=== PATIENT | female | born 1995 | race Caucasian/White ===

== ENCOUNTER 2017-10-29 16:01 | Emergency (ER) | payer OTHER ==
[2017-10-29] MEDS ORDERED: Famotidine IV* 10 MG/ML 2 ML (20 mg) IV SLOW PU ONE (17:31)
[2017-10-29] MEDS ORDERED: methylPREDNISolone 125 MG* 2 ML VIAL IV ONE (17:31)
[2017-10-29] MEDS ORDERED: NS 0.9% 1000 ML* 1,000 ML IV ONE (17:33)
[2017-10-29 19:53] VITALS: BP 112/58
--- NOTE | 2017-10-30 22:41 | ED ---
David Pruett Stephanie, scribed for Santiago Izquierdo MD on 10/29/17 at 1801 . Allergic Reaction/Systemic - HPI Summary HPI Summary: The pt is a 22 y/o F presenting to the ED with c/o possible allergic reaction that began at 14:30 s/p eating at the dining [place]. Symptoms include difficulty breathing and itchy throat with cough. The pt self-administered epi pen and took antihistamine at 15:30. She states a shellfish allergy. The pt reports recent accounts of allergic reactions but is unaware of what caused the reaction today due to lack of shellfish consumed today. The pt denies nausea. - History of Current Complaint Chief Complaint: EDAllergicReaction Time Seen by Provider: 10/29/17 17:21 Hx Obtained From: Patient Onset/Duration: Started hours ago - 3, Resolved Timing: Constant Severity Currently: None Pain Intensity: 0 Pain Scale Used: 0-10 Numeric Character: Swelling Aggravating Factor(s): Nothing Alleviating Factor(s): Nothing Associated Signs And Symptoms: Positive: Difficulty Breathing, Other: - throat itchiness - Allergies/Home Medications Allergies/Adverse Reactions: Allergies Allergy/AdvReac Type Severity Reaction Status Date / Time MS Sulfa Antibiotics Allergy Rash Verified 07/20/16 09:59 [Sulfa Antibiotics] PMH/Surg Hx/FS Hx/Imm Hx Endocrine/Hematology History: Denies: Hx Diabetes Cardiovascular History: Denies: Hx Hypertension, Hx Pacemaker/ICD History: Denies: Hx Renal Disease Sensory History: Denies: Hx Legally Blind, Hx Hearing Aid EENT History: Denies: Hx Deafness Psychiatric History: Denies: Hx Panic Disorder - Surgical History Surgery Procedure, Year, and Place: TUBES CHILD Infectious Disease History: No Infectious Disease History: Denies: Traveled Outside the [place] in Last 30 Days - Family History Known Family History: Positive: Unknown - Reviewed and non-contributory - Social History Occupation: Student Lives: Dormitory/Roommates Alcohol Use: Occasionally Substance Use Type: Reports: None Smoking Status (MU): Never Smoked Tobacco Review of Systems Negative: Fever, Chills Negative: Erythema Positive: Other - itchy throat. Negative: Sore Throat Negative: Chest Pain Positive: Other - difficulty breathing. Negative: Shortness Of Breath, Cough Negative: Abdominal Pain, Vomiting, Nausea Negative: dysuria, hematuria Negative: Myalgia, Edema Negative: Rash Neurological: Other - Negative: dizziness All Other Systems Reviewed And Are Negative: Yes Physical Exam - Summary Physical Exam Summary: Constitutional: Well-developed, Well-nourished, Alert. (-) Distressed Skin: Warm, Dry HENT: Normocephalic; Atraumatic Eyes: Conjunctiva normal Neck: Musculoskeletal ROM normal neck. (-) JVD, (-) Stridor, (-) Tracheal deviation Cardio: Rhythm regular, rate normal, Heart sounds normal; Intact distal pulses; The pedal pulses are 2+ and symmetric. Radial pulses are 2+ and symmetric. (-) Murmur Pulmonary/Chest wall: Effort normal. (-) Respiratory distress, (-) Wheezes, (-) Rales Abd: Soft, (-) Tenderness, (-) Distension, (-) Guarding, (-) Rebound Musculoskeletal: (-) Edema Lymph: (-) Cervical adenopathy Neuro: Alert, Oriented x3 Psych: Mood and affect Normal Triage Information Reviewed: Yes Vital Signs On Initial Exam: Initial Vitals Temp Pulse Resp BP Pulse Ox 98.4 F 102 18 144/75 100 10/29/17 16:13 10/29/17 16:13 10/29/17 16:13 10/29/17 16:13 10/29/17 16:13 Vital Signs Reviewed: Yes Diagnostics - Vital Signs Vital Signs Temp Pulse Resp BP Pulse Ox 10/29/17 16:14 97 99 10/29/17 16:13 98.4 F 102 18 144/75 100 - Laboratory Lab Statement: Any lab studies that have been ordered have been reviewed, and results considered in the medical decision making process. Allergic Reaction Course/Dx - Course Course Of Treatment: The pt will remain in the ED for 4 hours of observation s/ p self-epinephrine administration. - Diagnoses Provider Diagnoses: Anaphylaxis Discharge - Discharge Plan Condition: Stable Disposition: HOME Prescriptions: predniSONE TAB* [Deltasone TAB*] 50 mg PO DAILY #5 tab Patient Education Materials: Food Allergy (ED), Anaphylaxis (ED) Referrals: Yazan Martinez DO [Primary Care Provider] - 2 Days Additional Instructions: RETURN TO THE EMERGENCY DEPARTMENT FOR CHANGING OR WORSENING SYMPTOMS The documentation as recorded by the David rincon Stephanie accurately reflects the service I personally performed and the decisions made by Felecia bob Jerry, MD.
== END 2017-10-29 19:52 | disposition home or self-care (01) ==
LOC: ED 16:01
DX: T78.2XXA Anaphylactic shock, unspecified, initial encounter (principal); Z88.2 Allergy status to sulfonamides
CPT/HCPCS: 96361; 96374; 96375; 99283; J2930

== ENCOUNTER 2017-11-10 22:02 | Emergency (ER) | payer OTHER ==
[2017-11-10 23:25] LABS: ABS Basophils 0.1 10^3/ul (0-0.2); ABS Eosinophils 0.2 10^3/ul (0-0.6); ABS Lymphocytes 3.5 10^3/ul (1.0-4.8); ABS Monocytes 0.8 10^3/ul (0-0.8); ABS Neutrophils 5.3 10^3/ul (1.5-7.7); ABS Nucleated RBC 0 10^3/ul; Eosinophil % 1.9 % (0-6); Hematocrit 41 % (35-47); Hemoglobin 14.1 g/dl (12.0-16.0); Lymphocyte % 35.5 % (25-47); Mean Corpuscular HGB Conc 34 g/dl (31-36); Mean Corpuscular Hemoglobin 29 pg (27-31); Mean Corpuscular Volume 85 fL (80-97); Mean Platelet Volume 8 um3 (7.4-10.4); Nucleated Red Blood Cells % 0.1; Platelet Count 171 10^3/ul (150-450); Red Blood Count 4.83 10^6/ul (4.0-5.4); Red Cell Distribution Width 13 % (10.5-15); White Blood Count 9.7 10^3/ul (3.5-10.8)
[2017-11-10 23:38] LABS: EGFR Non-African American 94.6 (>60)
--- NOTE | 2017-11-11 00:03 | ED ---
HPI Chest Pain - HPI Summary HPI Summary: Patient is an otherwise healthy 22-year-old female presenting to the ED with chief complaint of substernal chest pain which radiates up into the left lateral neck. She states the neck pain began first 2 days ago and did not radiate. Then today, she developed the substernal chest pain. She denies diaphoresis, palpitations, shortness of breath, nausea, vomiting, headache, blurry or double vision. Denies any personal or family cardiac history. She states she was on prednisone for an allergic reaction for several days and was abruptly stopped 2 days ago. This is when her symptoms began. She denies any other change to her medical history. She denies recent illness or sick contacts. - History of Current Complaint Chief Complaint: EDChestPainROMI Time Seen by Provider: 11/10/17 22:18 Hx Obtained From: Patient Onset/Duration: Started Hours Ago Timing: Constant Initial Severity: Mild Current Severity: Mild Pain Intensity: 8 Pain Scale Used: 0-10 Numeric Chest Pain Location: Mid Sternal Chest Pain Radiates: No Character: Dull/Aching Aggravating Factor(s): Nothing Alleviating Factor(s): Nothing Associated Signs and Symptoms: Positive: Negative - Risk Factors Pulmonary Embolism Risk Factors: Negative TAD Risk Factors: Negative - Allergy/Home Medications Allergies/Adverse Reactions: Allergies Allergy/AdvReac Type Severity Reaction Status Date / Time Sulfa (Sulfonamide Allergy Rash Verified 10/29/17 19:35 Antibiotics) PMH/Surg Hx/FS Hx/Imm Hx Previously Healthy: Yes Endocrine/Hematology History: Denies: Hx Diabetes Cardiovascular History: Denies: Hx Hypertension, Hx Pacemaker/ICD History: Denies: Hx Renal Disease Sensory History: Denies: Hx Legally Blind, Hx Deafness, Hx Hearing Aid Opthamlomology History: Denies: Hx Legally Blind Psychiatric History: Denies: Hx Panic Disorder - Surgical History Surgery Procedure, Year, and Place: TUBES CHILD - Immunization History Hx Pertussis Vaccination: No Immunizations Up to Date: Unable to Obtain/Confirm Infectious Disease History: Yes Infectious Disease History: Denies: Traveled Outside the [place] in Last 30 Days - Family History Known Family History: Positive: Unknown - Reviewed and non-contributory - Social History Occupation: Unemployed, Student Lives: With Family Alcohol Use: Occasionally Hx Substance Use: No Substance Use Type: Reports: None Hx Tobacco Use: No Smoking Status (MU): Never Smoked Tobacco Review of Systems Constitutional: Negative Negative: Fever, Chills, Fatigue, Skin Diaphoresis Eyes: Negative Positive: Chest Pain Respiratory: Negative Gastrointestinal: Negative Positive: no symptoms reported, see HPI Musculoskeletal: Negative Neurological: Negative All Other Systems Reviewed And Are Negative: Yes Physical Exam Triage Information Reviewed: Yes Vital Signs On Initial Exam: Initial Vitals Temp Pulse Resp BP Pulse Ox 98.8 F 87 16 145/96 99 11/10/17 22:02 11/10/17 22:02 11/10/17 22:02 11/10/17 22:02 11/10/17 22:02 Vital Signs Reviewed: Yes Appearance: Positive: Well-Appearing, Well-Nourished Skin: Positive: Warm, Skin Color Reflects Adequate Perfusion Head/Face: Positive: Normal Head/Face Inspection Eyes: Positive: EOMI, DAISY, Conjunctiva Clear Neck: Positive: Supple Diagnostics - Vital Signs Vital Signs Temp Pulse Resp BP Pulse Ox 11/10/17 22:02 98.8 F 87 16 145/96 99 - Laboratory Lab Results: Lab Results 11/10/17 11/10/17 11/10/17 Range/Units 23:12 23:12 23:12 WBC 9.7 (3.5-10.8) 10^3/ul RBC 4.83 (4.0-5.4) 10^6/ul Hgb 14.1 (12.0-16.0) g/dl Hct 41 (35-47) % MCV 85 (80-97) fL MCH 29 (27-31) pg MCHC 34 (31-36) g/dl RDW 13 (10.5-15) % Plt Count 171 (150-450) 10^3/ul MPV 8 (7.4-10.4) um3 Neut % (Auto) 54.0 (38-83) % Lymph % (Auto) 35.5 (25-47) % [place] % (Auto) 8.1 H (0-7) % Eos % (Auto) 1.9 (0-6) % Baso % (Auto) 0.5 (0-2) % Absolute Neuts (auto) 5.3 (1.5-7.7) 10^3/ul Absolute Lymphs (auto) 3.5 (1.0-4.8) 10^3/ul Absolute Monos (auto) 0.8 (0-0.8) 10^3/ul Absolute Eos (auto) 0.2 (0-0.6) 10^3/ul Absolute Basos (auto) 0.1 (0-0.2) 10^3/ul Absolute Nucleated RBC 0 10^3/ul Nucleated RBC % 0.1 APTT 28.1 (26.0-36.3) seconds D-Dimer, Quantitative < 200 (Less Than 230) ng/mL Sodium (133-145) mmol/L Potassium (3.5-5.0) mmol/L Chloride (101-111) mmol/L Carbon Dioxide (22-32) mmol/L Anion Gap (2-11) mmol/L BUN (6-24) mg/dL Creatinine (0.51-0.95) mg/dL Est GFR ( Amer) (>60) Est GFR (Non-Af Amer) (>60) BUN/Creatinine Ratio (8-20) Glucose (70-100) mg/dL Lactic Acid (0.5-2.0) mmol/L Calcium (8.6-10.3) mg/dL Magnesium (1.9-2.7) mg/dL Total Bilirubin (0.2-1.0) mg/dL AST (13-39) U/L ALT (7-52) U/L Alkaline Phosphatase (34-104) U/L Total Creatine Kinase (10-223) U/L CK-MB (CK-2) (0.6-6.3) ng/mL Troponin I (<0.04) ng/mL B-Natriuretic Peptide 27 ( - 100) pg/mL Total Protein (6.4-8.9) g/dL Albumin (3.2-5.2) g/dL Globulin (2-4) g/dL Albumin/Globulin Ratio (1-3) Beta HCG, Quant mIU/mL 11/10/17 11/10/17 Range/Units 23:12 23:12 WBC (3.5-10.8) 10^3/ul RBC (4.0-5.4) 10^6/ul Hgb (12.0-16.0) g/dl Hct (35-47) % MCV (80-97) fL MCH (27-31) pg MCHC (31-36) g/dl RDW (10.5-15) % Plt Count (150-450) 10^3/ul MPV (7.4-10.4) um3 Neut % (Auto) (38-83) % Lymph % (Auto) (25-47) % [place] % (Auto) (0-7) % Eos % (Auto) (0-6) % Baso % (Auto) (0-2) % Absolute Neuts (auto) (1.5-7.7) 10^3/ul Absolute Lymphs (auto) (1.0-4.8) 10^3/ul Absolute Monos (auto) (0-0.8) 10^3/ul Absolute Eos (auto) (0-0.6) 10^3/ul Absolute Basos (auto) (0-0.2) 10^3/ul Absolute Nucleated RBC 10^3/ul Nucleated RBC % APTT (26.0-36.3) seconds D-Dimer, Quantitative (Less Than 230) ng/mL Sodium 138 (133-145) mmol/L Potassium 3.9 (3.5-5.0) mmol/L Chloride 105 (101-111) mmol/L Carbon Dioxide 27 (22-32) mmol/L Anion Gap 6 (2-11) mmol/L BUN 12 (6-24) mg/dL Creatinine 0.77 (0.51-0.95) mg/dL Est GFR ( Amer) 121.7 (>60) Est GFR (Non-Af Amer) 94.6 (>60) BUN/Creatinine Ratio 15.6 (8-20) Glucose 98 (70-100) mg/dL Lactic Acid 1.4 (0.5-2.0) mmol/L Calcium 9.5 (8.6-10.3) mg/dL Magnesium 2.2 (1.9-2.7) mg/dL Total Bilirubin 0.40 (0.2-1.0) mg/dL AST 26 (13-39) U/L ALT 37 (7-52) U/L Alkaline Phosphatase 47 (34-104) U/L Total Creatine Kinase 62 (10-223) U/L CK-MB (CK-2) 0.8 (0.6-6.3) ng/mL Troponin I 0.00 (<0.04) ng/mL B-Natriuretic Peptide ( - 100) pg/mL Total Protein 6.5 (6.4-8.9) g/dL Albumin 4.0 (3.2-5.2) g/dL Globulin 2.5 (2-4) g/dL Albumin/Globulin Ratio 1.6 (1-3) Beta HCG, Quant 0.76 mIU/mL Result Diagrams: 11/10/17 23:12 11/10/17 23:12 Lab Statement: Any lab studies that have been ordered have been reviewed, and results considered in the medical decision making process. Chest Pain Course/Dx - Course Course Of Treatment: During the course of treatment, the patient was evaluated for midsternal chest pain and left lateral neck pain which is a 2 out of 10 and has been present since this afternoon. However, the neck pain has been present since 2 days ago. Labs obtained and unremarkable. EKG shows normal sinus rhythm. Troponin is 0.00. D-dimer is less than 200. I have given her all this information, and have discussed the possibility that this could be a rebound reaction from the abrupt stop the prednisone. I have also discussed with her chest wall pain and costochondritis. I do not believe she is in any danger at this time for a cardiac event. However, I have advised she return to the ED immediately if symptoms worsen or persist. She is okay with this plan and voices no concerns at this time. - Diagnoses Provider Diagnoses: Midsternal chest pain Discharge - Discharge Plan Condition: Stable Disposition: HOME Patient Education Materials: Costochondritis (ED), Chest Wall Pain (ED) Referrals: Yazan Martinez DO [Primary Care Provider] - Additional Instructions: I have given you information for costochondritis as well as chest wall pain. As discussed, we are unsure of the cause of your midsternal chest pain However, it could be a side effect due to the prednisone If any symptoms persist or worsen, return to the ED immediately
[2017-11-11 00:08] VITALS: BP 136/80
--- NOTE | 2017-11-11 07:30 | RAD ---
HISTORY: Chest pain COMPARISONS: None VIEWS: 1: frontal portable view of the chest at 10:40 PM FINDINGS: LINES AND TUBES: None. CARDIOMEDIASTINAL SILHOUETTE: The cardiomediastinal silhouette is normal for portable technique. PLEURA: The costophrenic angles are sharp. No pleural abnormalities are noted. LUNG PARENCHYMA: The lungs are clear. ABDOMEN: The upper abdomen is clear. There is no subphrenic gas. BONES AND SOFT TISSUES: No bone or soft tissue abnormalities are noted. IMPRESSION: NO ACTIVE CARDIOPULMONARY DISEASE.
== END 2017-11-11 00:07 | disposition home or self-care (01) ==
LOC: ED 22:02
DX: R07.9 Chest pain, unspecified (principal)
CPT/HCPCS: 36415; 71045; 80053; 82550; 82553; 83605; 83735; 83880; 84484; 84702; 85025; 85379; 85730; 93005; 99283

== ENCOUNTER 2017-11-27 10:25 | Emergency (ER) | payer OTHER ==
[2017-11-27 11:04] LABS: Hematocrit 43 % (35-47); Hemoglobin 14.7 g/dl (12.0-16.0); Mean Corpuscular HGB Conc 34 g/dl (31-36); Mean Corpuscular Hemoglobin 28 pg (27-31); Mean Corpuscular Volume 83 fL (80-97); Mean Platelet Volume 8 um3 (7.4-10.4); Platelet Count 197 10^3/ul (150-450); Red Blood Count 5.17 10^6/ul (4.0-5.4); Red Cell Distribution Width 13 % (10.5-15)
[2017-11-27 11:07] LABS: ABS Basophils 0 10^3/ul (0-0.2); ABS Eosinophils 0.1 10^3/ul (0-0.6); ABS Lymphocytes 1.9 10^3/ul (1.0-4.8); ABS Monocytes 0.5 10^3/ul (0-0.8); ABS Neutrophils 3.4 10^3/ul (1.5-7.7); ABS Nucleated RBC 0 10^3/ul; Eosinophil % 2.3 % (0-6); Lymphocyte % 31.8 % (25-47); Nucleated Red Blood Cells % 0.1
[2017-11-27 11:30] LABS: EGFR Non-African American 96.1 (>60)
--- NOTE | 2017-11-27 11:52 | RAD ---
HISTORY: Right upper quadrant pain. COMPARISONS: None TECHNIQUE: Multiple transverse and longitudinal ultrasound images were obtained of the right upper quadrant. FINDINGS: LIVER: The liver is normal in dimensions and echogenicity. Normal hepatic and portal venous blood flow is duplicated with color flow imaging. There is no gross intrahepatic biliary duct dilatation. GALLBLADDER AND EXTRAHEPATIC BILIARY DUCT: The gallbladder is normal in appearance without intraluminal stones or other soft tissue masses. There is no pericholecystic fluid or gallbladder wall thickening. The common bile duct measures a maximum diameter of 3 mm. PANCREAS: The portions of the pancreas not obscured by bowel gas are normal in appearance. RIGHT KIDNEY: The right kidney is normal in size, morphology and echogenicity. AORTA AND IVC: The visualized portions are normal in appearance and not pathologically dilated. IMPRESSION: Normal ultrasound of the right upper quadrant.
[2017-11-27 12:01] LABS: Urine Appearance Cloudy; Urine Blood Negative (Negative); Urine Color Yellow; Urine Ketones Negative (Negative); Urine Protein Negative (Negative); Urine Specific Gravity 1.024 (1.010-1.030); Urine Urobilinogen Negative (Negative)
[2017-11-27] MEDS ORDERED: Metoclopramide IV* 5 MG/ML 2 ML VIAL IV ONE (12:14)
--- NOTE | 2017-11-27 12:58 | ED ---
Abdominal Pain/Female - HPI Summary HPI Summary: 22 female presents to ED with complaints of RLQ abdominal pain that began yesterday. States the pain yesterday was a cramping higher up pain and more in the middle however this morning it became worse/sharper cramping and in RLQ/ umbilical area. States the bus ride over, walking and movement makes the pain worse. States it is a mild dull ache currently 4/5. Denies any fever or vomiting. Admits to some nausea and 1 episode of diarrhea. LMP was 4 weeks ago, patient stopped taking OCP last month because she ran out and has not had menses since 4 weeks ago. Denies vaginal bleeding and discharge. Has not tried any medication for pain. Last normal BM was yesterday and was without blood. Denies urinary symptoms other than urinary frequency. Pain sometimes radiates into right flank, but no where else. No concern for or STDs. No FHx of abdominal surgeries/appey. No other complaints. Rest makes pain better. States she is not sexually active currently. - History of Current Complaint Chief Complaint: EDAbdPain Stated Complaint: ABD PAIN Time Seen by Provider: 11/27/17 10:43 Hx Obtained From: Patient Hx Last Menstrual Period: "4 weeks ago" ?: No Onset/Duration: Sudden Onset, Lasting Days - since last night 11/26/17 Timing: Constant Severity Initially: Mild Severity Currently: Moderate Pain Intensity: 7 Pain Scale Used: 0-10 Numeric Location: Discrete At: RUQ - yesterday "only for a little bit" has since gone away, Discrete At: RLQ, Suprapubic, Umbilical Radiates: Yes Radiates to: Flank - R, minimally and only sometimes Character: Sharp, Cramping Aggravating Factor(s): Movement - bus ride over, walking Alleviating Factor(s): Nothing - rest Associated Signs and Symptoms: Positive: Nausea, Diarrhea - x1. Negative: Fever , Constipation, Blood in Stool, Urinary Symptoms, Decreased Appetite, Vaginal Bleeding, Vaginal Discharge, Vomiting Allergies/Adverse Reactions: Allergies Allergy/AdvReac Type Severity Reaction Status Date / Time Sulfa (Sulfonamide Allergy Rash Verified 11/27/17 10:31 Antibiotics) Home Medications: Home Medications EPINEPHrine [Epipen] 0.3 mg INJ ONCE PRN 11/27/17 [History Confirmed 11/27/17] Norgestimate-Ethinyl Estradiol [Tri-Previfem Tablet] 1 each PO DAILY 11/27/17 [ History Confirmed 11/27/17] PMH/Surg Hx/FS Hx/Imm Hx Endocrine/Hematology History: Denies: Hx Diabetes Cardiovascular History: Denies: Hx Hypertension, Hx Pacemaker/ICD History: Denies: Hx Renal Disease Sensory History: Denies: Hx Legally Blind, Hx Deafness, Hx Hearing Aid Opthamlomology History: Denies: Hx Legally Blind Psychiatric History: Denies: Hx Panic Disorder - Surgical History Surgery Procedure, Year, and Place: TUBES CHILD - Immunization History Immunizations Up to Date: Yes Infectious Disease History: No Infectious Disease History: Denies: Traveled Outside the [place] in Last 30 Days - Family History Known Family History: Positive: Unknown - Reviewed and non-contributory - Social History Alcohol Use: Occasionally Hx Substance Use: No Substance Use Type: Reports: None Hx Tobacco Use: No Smoking Status (MU): Never Smoked Tobacco Review of Systems Constitutional: Negative Cardiovascular: Negative Respiratory: Negative Positive: Abdominal Pain, Diarrhea - x1, Nausea Positive: frequency Neurological: Negative All Other Systems Reviewed And Are Negative: Yes Physical Exam Triage Information Reviewed: Yes Vital Signs On Initial Exam: Initial Vitals Temp Pulse Resp BP Pulse Ox 97 F 103 12 153/86 98 11/27/17 10:31 11/27/17 10:31 11/27/17 10:31 11/27/17 10:31 11/27/17 10:31 Hr 90 and BP 134/78 once relaxed and in stretcher on recheck Vital Signs Reviewed: Yes Appearance: Positive: Well-Appearing, No Pain Distress, Well-Nourished Skin: Positive: Warm, Skin Color Reflects Adequate Perfusion, Dry. Negative: Cold, Numb, Cyanosis @, Pale, Erythema @ Head/Face: Positive: Normal Head/Face Inspection Eyes: Positive: Conjunctiva Clear ENT: Positive: Pharynx normal, TMs normal Dental: Negative: Cervical Lymphadenopathy Neck: Positive: Supple, Nontender Respiratory/Lung Sounds: Positive: Clear to Auscultation, Breath Sounds Present. Negative: Rales, Rhonchi, Wheezes Cardiovascular: Positive: Normal, RRR, Pulses are Symmetrical in both Upper and Lower Extremities. Negative: Murmur, Rub Abdomen Description: Positive: No Organomegaly, Soft, McBurney's Point Tenderness - RLQ, Other: - ttp of RLQ. + psoas, negative murphys, negative rovsings and rebound. Negative: Bruit, CVA Tenderness (R), CVA Tenderness (L), Distended, Guarding, Peritoneal Signs, Pulsatile Mass Bowel Sounds: Positive: Present Pelvic Exam: Positive: external exam normal - per patient, refused pelvic as she is symptomatic, other - deferred exam Musculoskeletal: Positive: Normal, Strength/ROM Intact Neurological: Positive: Normal, Sensory/Motor Intact, Alert, Oriented to Person Place, Time Diagnostics - Vital Signs Vital Signs Temp Pulse Resp BP Pulse Ox 11/27/17 11:31 134/78 11/27/17 11:27 90 98 11/27/17 11:00 90 97 11/27/17 10:41 108 96 11/27/17 10:39 136/85 11/27/17 10:31 97 F 103 12 153/86 98 - Laboratory Lab Results: Lab Results 11/27/17 11/27/17 11/27/17 Range/Units 10:57 10:57 10:57 WBC 6.0 (3.5-10.8) 10^3/ul RBC 5.17 (4.0-5.4) 10^6/ul Hgb 14.7 (12.0-16.0) g/dl Hct 43 (35-47) % MCV 83 (80-97) fL MCH 28 (27-31) pg MCHC 34 (31-36) g/dl RDW 13 (10.5-15) % Plt Count 197 (150-450) 10^3/ul MPV 8 (7.4-10.4) um3 Neut % (Auto) 57.1 (38-83) % Lymph % (Auto) 31.8 (25-47) % [place] % (Auto) 8.4 H (0-7) % Eos % (Auto) 2.3 (0-6) % Baso % (Auto) 0.4 (0-2) % Absolute Neuts (auto) 3.4 (1.5-7.7) 10^3/ul Absolute Lymphs (auto) 1.9 (1.0-4.8) 10^3/ul Absolute Monos (auto) 0.5 (0-0.8) 10^3/ul Absolute Eos (auto) 0.1 (0-0.6) 10^3/ul Absolute Basos (auto) 0 (0-0.2) 10^3/ul Absolute Nucleated RBC 0 10^3/ul Nucleated RBC % 0.1 Sodium 136 (133-145) mmol/L Potassium 3.8 (3.5-5.0) mmol/L Chloride 105 (101-111) mmol/L Carbon Dioxide 25 (22-32) mmol/L Anion Gap 6 (2-11) mmol/L BUN 9 (6-24) mg/dL Creatinine 0.76 (0.51-0.95) mg/dL Est GFR ( Amer) 123.5 (>60) Est GFR (Non-Af Amer) 96.1 (>60) BUN/Creatinine Ratio 11.8 (8-20) Glucose 97 (70-100) mg/dL Lactic Acid 0.9 (0.5-2.0) mmol/L Calcium 9.7 (8.6-10.3) mg/dL Magnesium 1.9 (1.9-2.7) mg/dL Total Bilirubin 0.60 (0.2-1.0) mg/dL AST 17 (13-39) U/L ALT 27 (7-52) U/L Alkaline Phosphatase 52 (34-104) U/L C-Reactive Protein 2.74 (< 5.00) mg/L Total Protein 7.0 (6.4-8.9) g/dL Albumin 4.2 (3.2-5.2) g/dL Globulin 2.8 (2-4) g/dL Albumin/Globulin Ratio 1.5 (1-3) Lipase < 10 L (11.0-82.0) U/L Beta HCG, Quant < 0.60 mIU/mL Urine Color Urine Appearance Urine pH (5-9) Ur Specific [place] (1.010-1.030) Urine Protein (Negative) Urine Ketones (Negative) Urine Blood (Negative) Urine Nitrate (Negative) Urine Bilirubin (Negative) Urine Urobilinogen (Negative) Ur Leukocyte Esterase (Negative) Urine WBC (Auto) (Absent) Urine RBC (Auto) (Absent) Ur Squamous Epith Cells (Absent) Urine Bacteria (Absent) Urine Glucose (Negative) 11/27/17 Range/Units 11:30 WBC (3.5-10.8) 10^3/ul RBC (4.0-5.4) 10^6/ul Hgb (12.0-16.0) g/dl Hct (35-47) % MCV (80-97) fL MCH (27-31) pg MCHC (31-36) g/dl RDW (10.5-15) % Plt Count (150-450) 10^3/ul MPV (7.4-10.4) um3 Neut % (Auto) (38-83) % Lymph % (Auto) (25-47) % [place] % (Auto) (0-7) % Eos % (Auto) (0-6) % Baso % (Auto) (0-2) % Absolute Neuts (auto) (1.5-7.7) 10^3/ul Absolute Lymphs (auto) (1.0-4.8) 10^3/ul Absolute Monos (auto) (0-0.8) 10^3/ul Absolute Eos (auto) (0-0.6) 10^3/ul Absolute Basos (auto) (0-0.2) 10^3/ul Absolute Nucleated RBC 10^3/ul Nucleated RBC % Sodium (133-145) mmol/L Potassium (3.5-5.0) mmol/L Chloride (101-111) mmol/L Carbon Dioxide (22-32) mmol/L Anion Gap (2-11) mmol/L BUN (6-24) mg/dL Creatinine (0.51-0.95) mg/dL Est GFR ( Amer) (>60) Est GFR (Non-Af Amer) (>60) BUN/Creatinine Ratio (8-20) Glucose (70-100) mg/dL Lactic Acid (0.5-2.0) mmol/L Calcium (8.6-10.3) mg/dL Magnesium (1.9-2.7) mg/dL Total Bilirubin (0.2-1.0) mg/dL AST (13-39) U/L ALT (7-52) U/L Alkaline Phosphatase (34-104) U/L C-Reactive Protein (< 5.00) mg/L Total Protein (6.4-8.9) g/dL Albumin (3.2-5.2) g/dL Globulin (2-4) g/dL Albumin/Globulin Ratio (1-3) Lipase (11.0-82.0) U/L Beta HCG, Quant mIU/mL Urine Color Yellow Urine Appearance Cloudy Urine pH 5.0 (5-9) Ur Specific [place] 1.024 (1.010-1.030) Urine Protein Negative (Negative) Urine Ketones Negative (Negative) Urine Blood Negative (Negative) Urine Nitrate Negative (Negative) Urine Bilirubin Negative (Negative) Urine Urobilinogen Negative (Negative) Ur Leukocyte Esterase 1+ A (Negative) Urine WBC (Auto) Trace(0-5/hpf) (Absent) Urine RBC (Auto) 1+(3-5/hpf) A (Absent) Ur Squamous Epith Cells Present A (Absent) Urine Bacteria 1+ A (Absent) Urine Glucose Negative (Negative) Result Diagrams: 11/27/17 10:57 11/27/17 10:57 Lab Statement: Any lab studies that have been ordered have been reviewed, and results considered in the medical decision making process. - CT abd/pelvis CT Interpretation: No Acute Changes - 1. Evaluation of the gastrointestinal tract, including the appendix, is limited without oral contrast. There is no definite inflammatory change of the gastrointestinal tract. 2. Free fluid in the pelvis and adjacent to the adnexa can be seen in the setting of ovulation in a premenopausal woman. Please correlate to the patient's stage of menstruation. 3. In the right lobe of the liver there is a 5 mm hypoattenuating focus that is incompletely evaluated on this CT examination. This appears to correspond to the anechoic structure seen in the right lobe of the liver on the same day ultrasound of the right upper quadrant. A benign hemangioma or cyst is favored. CT Interpretation Completed By: Radiologist - Ultrasound No standard instances Ultrasound Interpretation: No Acute Changes - APPENDIX: NONVISUALIZATION OF THE APPENDIX PELVIC/TRANSVAGINAL:There is a moderate amount of free fluid in the cul -de-sac, a nonspecific NORMAL RUQ abdominal ultrasound TRANSVAGINAL/PELVIC: finding that can be seen normally in premenopausal women according to the stage of menstruation. Ultrasound Interpretation Completed By: Radiologist Re-Evaluation - Re-Evaluation First Eval Re-Evaluation Time: 14:00 Change: Unchanged - still feeling ok, states she went to the bathroom and pain decreased some, still does not want pain medication. states bowel movement was diarrhea. no blood. waiting on CT and results. patient updated on US and lab results. aware of plan. centrifugal screen tender on palpation Second Eval Re-Evaluation Time: 16:30 Change: Unchanged - still feeling the same, pain has decreased since yesterday. resting comfortably thoughout stay and uppon re-eval. updated on CT results. discussed plan and patient understands and agrees. ready to be d/c Abdominal Pain Fem Course/Dx - Course Course Of Treatment: labs obtained and unremarkable. negative hcg. urianlysis obained and shows trace 1+ leuk, wbc, rbc and bacteria. is having urinary frequency. refused pelvic exam. obtianed US of gallbladder/appendix and pelvic which were all negative other than some culdesac free fluid and signs of menses beginning soon. CT obtianed due to concern for appendicitis, negative at this time. vitals normal, better on re-check. normal physical exam other than RLQ/ suprapubic mild tenderness. given reglan for nausea, had relief. fluids. no pain medication required as patient was comfortable and did not want any during stay. will wait for urine culture prior to starting UTI treatment with antibitoics as urinalysis was not incredibly significant and patient mostly asymptomatic. given toradol prior to discharge to help with discomfort, possibly related to menses. Fluids, rest, probiotics and heating pads. Aware of worsening signs and symptoms to watch out for and to return if occur. Follow up with PCP in 2 days, sooner if needed. patietn agrees and understands plan. - Diagnoses Differential Diagnosis: Positive: Appendicitis, Constipation, Ovarian Cyst, Urinary Tract Infection Provider Diagnoses: Lower abdominal pain, [place]chmerz Discharge - Discharge Plan Condition: Stable Disposition: HOME Patient Education Materials: Zoë (ED), Acute Abdominal Pain (ED) Referrals: Yazan Martinez DO [Primary Care Provider] - 2 Days Additional Instructions: Continue ibuprofen starting tomorrow if needed for any pain/discomfort. Take with food. Recommend increasing fluids, probiotics and heating pad. Any new or worsening symptoms (fever, chills, increasing pain, vomiting) as we discussed, please return to ED promptly. Follow up with PCP for recheck in 2 days.
--- NOTE | 2017-11-27 14:19 | RAD ---
INDICATION: Right lower quadrant pain COMPARISON: None TECHNIQUE: Real time ultrasound images of the right lower quadrant were acquired in carvalho scale and Doppler color flow. FINDINGS: The appendix is not discreetly visualized. Normal loops of bowel are seen. There is no acute inflammatory change, measurable lymphadenopathy or drainable fluid collection. IMPRESSION: Nonvisualization of the appendix.
--- NOTE | 2017-11-27 14:30 | RAD ---
INDICATION: Right pelvic pain COMPARISON: None. TECHNIQUE: Real-time transabdominal only ultrasound examination of the female pelvis including grayscale and Doppler color flow imaging. FINDINGS: Uterus: The uterus is normal in size and echogenicity measuring 7.0 x 3.8 x 3.9 cm. The endometrial stripe is smooth and uniform measuring 8 mm in thickness. Ovaries: The right and left ovary measure 3.6 x 2.4 x 3.3 cm and 3 x 2.5 x 2.8 cm, respectively. Normal arterial and venous waveforms are identified. Appearance is within normal limits for the patient's age. There is moderate amount of free fluid in the cul-de-sac. IMPRESSION: There is a moderate amount of free fluid in the cul-de-sac, a nonspecific finding that can be seen normally in premenopausal women according to the stage of menstruation.
[2017-11-27] MEDS ORDERED: Iohexol 300* (CONTRAST) 10 ML SDV IV ONE (14:59)
--- NOTE | 2017-11-27 16:27 | RAD ---
CLINICAL HISTORY: Right lower quadrant pain. COMPARISON: Same day ultrasound of the right lower quadrant that did not visualize the appendix and same day ultrasound of the gallbladder at did not show any acute abnormalities TECHNIQUE: Contrast enhanced CT examination of the abdomen and pelvis from the lung bases through the initial tuberosities. The patient received 100 mL Omnipaque 300 and intravenously prior to imaging. FINDINGS: VISUALIZED LUNG BASES: The visualized lung bases are grossly clear. There is no pleural effusion. ABDOMEN AND PELVIS: In the posterior aspect of the right lobe of the liver there is a 6 mm hypoattenuating focus that is incompletely evaluated on this CT examination. The otherwise normal-appearing spleen is top normal measuring 12 mm in greatest axial dimension. The pancreas and adrenal glands are grossly normal in appearance. The gallbladder is normal. The kidneys are normal in appearance without focal mass, calcification or signs of hydronephrosis. Evaluation of the gastrointestinal tract is limited without oral contrast. The small and large bowel are not distended. The cecal appendix is most likely identified in the right lower quadrant with fluid in the lumen measuring 5 mm in diameter (coronal image 41 and sagittal image 63). There is no definite periappendiceal inflammatory change. There is no gross retroperitoneal or mesenteric lymphadenopathy. There is free fluid along the anterior margin of the uterine fundus and also in the cul-de-sac posterior to the vagina. In the right adnexa there is a 12 mm low-attenuation focus that could be an involuting follicle in a woman of this age. The abdominal aorta and iliac arteries are normal in course and diameter. There are no sinister bone lesions. IMPRESSION: 1. Evaluation of the gastrointestinal tract, including the appendix, is limited without oral contrast. There is no definite inflammatory change of the gastrointestinal tract. 2. Free fluid in the pelvis and adjacent to the adnexa can be seen in the setting of ovulation in a premenopausal woman. Please correlate to the patient's stage of menstruation. 3. In the right lobe of the liver there is a 5 mm hypoattenuating focus that is incompletely evaluated on this CT examination. This appears to correspond to the anechoic structure seen in the right lobe of the liver on the same day ultrasound of the right upper quadrant. A benign hemangioma or cyst is favored.
[2017-11-27] MEDS ORDERED: Ketorolac INJ* 30 MG/ML 1 ML VIAL IV PUSH ONE (16:43)
[2017-11-27 17:23] VITALS: BP 121/69
== END 2017-11-27 17:22 | disposition home or self-care (01) ==
LOC: ED 10:25
DX: R10.31 Right lower quadrant pain (principal); N94.0 Mittelschmerz; Z88.2 Allergy status to sulfonamides
CPT/HCPCS: 36415; 74177; 76705; 76856; 80053; 81003; 81015; 83605; 83690; 83735; 84702; 85025; 86140; 87086; 96374; 96375; 99282; J2765; Q9967

== ENCOUNTER 2017-11-29 13:29 | Emergency (ER) | payer OTHER ==
[2017-11-29 13:49] VITALS: BP 132/88
--- NOTE | 2017-11-29 20:36 | UC ---
Migdalia Pruett Nilda, scribed for Deep Hoskins MD on 11/29/17 at 1501 . Complaint Female HPI - HPI Summary HPI Summary: This patient is a 22 year old F presenting to [facility] [place] with a chief complaint of constant right flank pain that wraps to right lower back since 11/26/17. Patient was in ED on 11/27/[address], US, bloodwork, and UA were unremarkable. The patient rates the sharp pain 8/10 in severity. Symptoms aggravated by palpation and alleviated by nothing. Patient reports urinary retention and frequency yesterday, but denies burning with urination, hematuria , and vaginal discharge. Patient notes that LNMP was 1 month and 1 week ago, which is normal for her when she is off her control. Patient states she's been off her control for one month and has not been sexually active for the past 3 months. - History Of Current Complaint Chief Complaint: UCAbdominalPain Stated Complaint: SIDE PAIN BOTH BACK AND ABDOMINAL Time Seen by Provider: 11/29/17 14:39 Hx Obtained From: Patient Hx Last Menstrual Period: "a little over 1 mth" Onset/Duration: Sudden Onset, Lasting Days, Still Present Timing: Constant Severity Currently: Severe Pain Intensity: 8 Pain Scale Used: 0-10 Numeric Radiates to: lower right back Character: Sharp Aggravating Factor(s): Other - palpation Alleviating Factor(s): Nothing Associated Signs And Symptoms: Positive: Back Pain. Negative: Vaginal Bleeding/ Discharge, Vaginal Discharge - Allergies/Home Medications Allergies/Adverse Reactions: Allergies Allergy/AdvReac Type Severity Reaction Status Date / Time Sulfa (Sulfonamide Allergy Rash Verified 11/29/17 15:50 Antibiotics) Home Medications: Home Medications Acetaminophen [Tylenol Extra Strength] 500 mg PO Q12H PRN 11/29/17 [History Confirmed 11/29/17] PMH/Surg Hx/FS Hx/Imm Hx Previously Healthy: Yes - Surgical History Surgical History: Yes Surgery Procedure, Year, and Place: TUBES CHILD. wisdom teeth - Family History Known Family History: Positive: Other - kidney stone (grandfather) - Social History Alcohol Use: Occasionally Substance Use Type: None Smoking Status (MU): Never Smoked Tobacco Review of Systems Gastrointestinal: Abdominal Pain - right flank pain Genitourinary: Other - urinary retention and frequency; negative burning with urination, hematuria, and vaginal discharge Musculoskeletal: Other: - right lower back pain All Other Systems Reviewed And Are Negative: Yes Physical Exam - Summary Physical Exam Summary: VITAL SIGNS: Reviewed. GENERAL: Patient is a well developed and nourished female who is lying comfortable in the stretcher. Patient is not in any acute respiratory distress. HEAD AND FACE: Normocephalic and atraumatic. EYES: PERRLA, EOMI x 2, No injected conjunctiva. EARS: Hearing grossly intact. Ear canals and tympanic membranes are WNL. MOUTH: Oropharynx within normal limits. NECK: Supple, trachea is midline, no adenopathy, no JVD. CHEST: Symmetric, no tenderness at palpation LUNGS: Clear to auscultation bilaterally. No wheezing or crackles. CVS: RRR,, S1 and S2 present, no murmurs or gallops appreciated. ABDOMEN: Soft, positive RLQ and right flank tenderness. Positive right CVAT. EXTREMITIES: FROM in all major joints, no edema, no cyanosis or clubbing. NEURO: Alert and oriented x 3. No acute neurological deficits. Speech is normal. SKIN: Dry and warm : Circumcised penis, both testicles are descended. No masses are appreciated. Positive cremasteric reflex. WARDROBE COORDINATOR: declined Triage Information Reviewed: Yes Vital Signs: Initial Vital Signs Temp 98.5 F 11/29/17 13:42 Pulse 114 11/29/17 13:42 Resp 18 11/29/17 13:42 BP 132/88 11/29/17 13:42 Pulse Ox 98 11/29/17 13:42 Vital Signs Reviewed: Yes Complaint Female Dx - Course Course Of Treatment: This patient is a 22 year old F presenting to [facility] [place] with a chief complaint of constant right flank pain that wraps to right lower back since 11/26/17. Patient was in ED on 11/27/[address], US, bloodwork, and UA were unremarkable. The patient rates the sharp pain 8/10 in severity. Symptoms aggravated palpation and alleviated by nothing. Patient reports urinary retention and frequency yesterday, but denies burning with urination, hematuria, and vaginal discharge. Patient notes that LNMP was 1 month and 1 week ago, which is normal for her when she is off her control. Patient states shes been off her control for one month and has not been sexually active for the past 3 months. Plan of care was discussed with the patient, and patient understands and agrees. All questions were answered to patient satisfaction. There were no further complaints or concerns. The patient is hemodynamically stable, alert and oriented x3. The patient was found to have increase BP in UC. The patient will follow up with PCP for better control of BP. She was dicharged to the ED for further w/u and management. - Differential Dx/Diagnosis Differential Diagnosis/HQI/PQRI: Appendicitis, Endometriosis, Ovarian Cyst, Ovarian Torsion, Pelvic Inflammatory Disease, , Renal Colic, Sexually Transmitted Disease, Ureteral Stone, Urinary Tract Infection Provider Diagnoses: Right lower quadrant pain. Right flank pain Discharge - Sign-Out/Discharge Documenting (check all that apply): Discharge - Discharge Plan Condition: Stable Disposition: HOME Patient Education Materials: Abdominal Pain (ED), Flank Pain (ED) Referrals: Yazan Martinez DO [Primary Care Provider] - Additional Instructions: FOLLOW UP WITH YOUR PRIMARY CARE PROVIDER WITHIN ONE WEEK FOR HIGH BLOOD PRESSURE NOTED TODAY. Patient will be discharged to the ED for further w/u for right flank and right lower quadrant pain - Billing Disposition and Condition Condition: STABLE Disposition: HOME The documentation as recorded by the Migdalia rincon Nilda accurately reflects the service I personally performed and the decisions made by , Deep Hoskins MD.
== END 2017-11-29 15:18 | disposition home or self-care (01) ==
LOC: UCEAST 13:29
DX: R10.31 Right lower quadrant pain (principal); Z88.2 Allergy status to sulfonamides
CPT/HCPCS: 99212; G0463

== ENCOUNTER 2017-11-29 15:48 | Emergency (ER) | payer OTHER ==
[2017-11-29] MEDS ORDERED: traMADol TAB* 50 MG PO ONE (18:24)
[2017-11-29] MEDS ORDERED: Ondansetron ODT TAB* 4 MG PO ONE (18:24)
[2017-11-29 18:51] LABS: ABS Basophils 0 10^3/ul (0-0.2); ABS Eosinophils 0.1 10^3/ul (0-0.6); ABS Lymphocytes 2.6 10^3/ul (1.0-4.8); ABS Monocytes 0.6 10^3/ul (0-0.8); ABS Neutrophils 5.5 10^3/ul (1.5-7.7); ABS Nucleated RBC 0 10^3/ul; Eosinophil % 1.1 % (0-6); Hematocrit 44 % (35-47); Lymphocyte % 28.8 % (25-47); Mean Corpuscular HGB Conc 34 g/dl (31-36); Mean Corpuscular Hemoglobin 29 pg (27-31); Mean Corpuscular Volume 85 fL (80-97); Mean Platelet Volume 8 um3 (7.4-10.4); Nucleated Red Blood Cells % 0.1; Platelet Count 218 10^3/ul (150-450); Red Cell Distribution Width 13 % (10.5-15); White Blood Count 8.9 10^3/ul (3.5-10.8)
[2017-11-29 19:02] LABS: Urine Appearance Clear; Urine Blood Negative (Negative); Urine Color Yellow; Urine Ketones 2+ (Negative); Urine Protein 1+(30 mg/dL) (Negative); Urine Specific Gravity 1.032 (1.010-1.030); Urine Urobilinogen Negative (Negative)
--- NOTE | 2017-11-29 19:14 | RAD ---
HISTORY: Right flank pain, urinary symptoms COMPARISONS: CT dated November 27, 2017 TECHNIQUE: Multiple transverse and longitudinal ultrasound images were obtained of the kidneys using grayscale and color Doppler imaging. FINDINGS: RIGHT KIDNEY: The right kidney is normal in shape, size, contour, and echogenicity. There is no hydronephrosis or nephrolithiasis. The right kidney measures 11.2 x 4 x 4.6 cm. LEFT KIDNEY: There is a simple cyst of the lower pole of the left kidney measuring 0.7 x 0.7 x 0.8 cm in size. There is a nonobstructing, cyst of lower pole measuring 0.4 cm. There is no hydronephrosis. The left kidney measures 10.6 x 4.3 x 4.1 cm. BLADDER: No images are submitted of the bladder. AORTA AND IVC: No images are submitted of the vasculature. RETROPERITONEUM: Unremarkable. OTHER: None. IMPRESSION: NONOBSTRUCTING CALCULUS OF THE LOWER POLE OF LEFT KIDNEY.
[2017-11-29 19:17] LABS: EGFR Non-African American 117.1 (>60)
[2017-11-29] MEDS ORDERED: Ketorolac INJ* 60 MG/2 ML VIAL IM ONE (19:36)
[2017-11-29 20:06] VITALS: BP 121/80
--- NOTE | 2017-12-03 13:43 | ED ---
Radha Pruett Gabriel, scribed for Santiago Izquierdo MD on 11/29/17 at 1753 . Abdominal Pain/Female - HPI Summary HPI Summary: This patient is a 22 year old F presenting to [facility] accompanied by her friend with a chief complaint of RLQ pain since 11-27-17. Pt was seen at today and sent here, she also had a CT for the same issue 2 days ago. She has had 2 US's and an UA with culture. The pain has moved from RLQ into her right flank/ribs. The patient rates the waxing and waning pain 7/10 in severity. Patient reports low grade fever 99.8, increased urinary frequency, decreased production, straining to urinate, decreased appetite, and nausea after eating. Patient denies sweats, chills, dysuria, hematuria, and vaginal discharge. LNMP is a week late but she has not been sexual active. - History of Current Complaint Chief Complaint: EDAbdPain Stated Complaint: ABD PAIN Time Seen by Provider: 11/29/17 17:34 Hx Obtained From: Patient Hx Last Menstrual Period: "a little over 1 mth" Onset/Duration: Lasting Days, Still Present - waxing and waning Timing: Constant Severity Initially: Moderate Severity Currently: Moderate Pain Intensity: 7 Pain Scale Used: 0-10 Numeric Location: Discrete At: RLQ Radiates: Yes Radiates to: Flank, Other - ribs Associated Signs and Symptoms: Positive: Negative - sweats, chills, dysuria, hematuria,, Other: - low grade fever 99.8, increased urinary frequency, decreased production, straining to urinate Allergies/Adverse Reactions: Allergies Allergy/AdvReac Type Severity Reaction Status Date / Time Sulfa (Sulfonamide Allergy Rash Verified 11/29/17 15:50 Antibiotics) PMH/Surg Hx/FS Hx/Imm Hx Endocrine/Hematology History: Denies: Hx Diabetes Cardiovascular History: Denies: Hx Hypertension, Hx Pacemaker/ICD History: Denies: Hx Renal Disease Sensory History: Denies: Hx Legally Blind, Hx Deafness, Hx Hearing Aid Opthamlomology History: Denies: Hx Legally Blind Psychiatric History: Denies: Hx Panic Disorder - Surgical History Surgery Procedure, Year, and Place: TUBES CHILD. wisdom teeth Infectious Disease History: No Infectious Disease History: Denies: Traveled Outside the [place] in Last 30 Days - Family History Known Family History: Positive: Unknown - Reviewed and non-contributory - Social History Occupation: Student Lives: Dormitory/Roommates Alcohol Use: Occasionally Hx Substance Use: No Substance Use Type: Reports: None Hx Tobacco Use: No Smoking Status (MU): Never Smoked Tobacco Review of Systems Positive: Fever - low grade , Other - decreased appetite, . Negative: Chills, Skin Diaphoresis Negative: Erythema Negative: Sore Throat Negative: Chest Pain Negative: Shortness Of Breath Positive: Abdominal Pain, Nausea - brought on by eating . Negative: Vomiting Genitourinary: Other - increased urinary frequency, decreased production, straining to urinate Negative: dysuria, discharge, hematuria Negative: Myalgia, Edema Negative: Rash Neurological: Negative - dizziness All Other Systems Reviewed And Are Negative: Yes Physical Exam - Summary Physical Exam Summary: Constitutional: Well-developed, Well-nourished, Alert. (-) Distressed Skin: Warm, Dry HENT: Normocephalic; Atraumatic Eyes: Conjunctiva normal Neck: Musculoskeletal ROM normal neck. (-) JVD, (-) Stridor, (-) Tracheal deviation Cardio: Rhythm regular, rate normal, Heart sounds normal; Intact distal pulses; The pedal pulses are 2+ and symmetric. Radial pulses are 2+ and symmetric. (-) Murmur Pulmonary/Chest wall: Effort normal. (-) Respiratory distress, (-) Wheezes, (-) Rales Abd: Soft, (-) Distension, (-) Guarding, (-) Rebound. RUQ is TTP Musculoskeletal: (-) Edema, right CVA tenderness Lymph: (-) Cervical adenopathy Neuro: Alert, Oriented x3 Psych: Mood and affect Normal Triage Information Reviewed: Yes Vital Signs On Initial Exam: Initial Vitals Temp Pulse Resp BP Pulse Ox 97.8 F 102 16 139/103 100 11/29/17 15:51 11/29/17 15:51 11/29/17 15:51 11/29/17 15:51 11/29/17 15:51 Vital Signs Reviewed: Yes Diagnostics - Vital Signs Vital Signs Temp Pulse Resp BP Pulse Ox 11/29/17 15:51 97.8 F 102 16 139/103 100 - Laboratory Result Diagrams: 11/29/17 18:36 11/29/17 18:36 Lab Statement: Any lab studies that have been ordered have been reviewed, and results considered in the medical decision making process. - Additional Comments Diagnostic Additional Comments: Renal US reveals, per radiologist, NONOBSTRUCTING CALCULUS OF THE LOWER POLE OF LEFT KIDNEY. ED physician has reviewed this radiology report. Re-Evaluation - Re-Evaluation First Eval Re-Evaluation Time: 19:39 Change: Improved Comment: The patient is feeling better. I discussed test results and discharge. Abdominal Pain Fem Course/Dx - Course Course Of Treatment: This patient is a 22 year old F presenting to [facility] accompanied by her friend with a chief complaint of RLQ pain since 11-27-17. Renal US reveals, per radiologist, NONOBSTRUCTING CALCULUS OF THE LOWER POLE OF LEFT KIDNEY. Given her urinary symptoms hematuria, negative urine culture and intermittent flank pain I suspect a non-obstructing renal stone. Test results with no significant abnormalities. In the ED course the patient was given ultram, Zofran, and toradol. Dx ureteral colic. Patient will be discharged with prescription for ultram and naproxen and follow up from Dr. Flores. The patient is agreeable with this plan. - Diagnoses Provider Diagnoses: Ureteral colic Discharge - Sign-Out/Discharge Documenting (check all that apply): Discharge - Discharge Plan Condition: Stable Disposition: HOME Prescriptions: Naproxen TAB* [Naprosyn 250 mg TAB*] 500 mg PO Q8H PRN #30 tab PRN Reason: Pain - Moderate To Severe traMADol TAB* [Ultram*] 50 mg PO Q6HR PRN #10 tab MDD 4 PRN Reason: Pain - Moderate Patient Education Materials: Renal Colic (ED) Referrals: Davy Flores MD [Medical Doctor] - 3 Days Additional Instructions: RETURN TO THE EMERGENCY DEPARTMENT FOR CHANGING OR WORSENING SYMPTOMS. The documentation as recorded by the Radha rincon Gabriel accurately reflects the service I personally performed and the decisions made by me, Santiago Izquierdo MD.
== END 2017-11-29 20:26 | disposition home or self-care (01) ==
LOC: ED 15:48
DX: N20.1 Calculus of ureter (principal); R50.9 Fever, unspecified; R11.2 Nausea with vomiting, unspecified; Z88.2 Allergy status to sulfonamides
CPT/HCPCS: 36415; 76775; 80053; 81003; 81015; 83605; 83690; 85025; 86140; 96372; 99283; A9270-GY; J1885

== ENCOUNTER 2017-12-04 16:27 | Emergency (ER) | payer OTHER ==
[2017-12-04] MEDS ORDERED: NS 0.9% 1000 ML* 1,000 ML IV ONE (16:55)
[2017-12-04 17:23] LABS: ABS Basophils 0 10^3/ul (0-0.2); ABS Eosinophils 0.1 10^3/ul (0-0.6); ABS Lymphocytes 2.2 10^3/ul (1.0-4.8); ABS Monocytes 0.5 10^3/ul (0-0.8); ABS Neutrophils 4.5 10^3/ul (1.5-7.7); ABS Nucleated RBC 0 10^3/ul; Eosinophil % 1.1 % (0-6); Hematocrit 44 % (35-47); Hemoglobin 14.8 g/dl (12.0-16.0); Lymphocyte % 29.5 % (25-47); Mean Corpuscular HGB Conc 34 g/dl (31-36); Mean Corpuscular Hemoglobin 29 pg (27-31); Mean Corpuscular Volume 85 fL (80-97); Nucleated Red Blood Cells % 0; Platelet Count 210 10^3/ul (150-450); Red Blood Count 5.19 10^6/ul (4.0-5.4); Red Cell Distribution Width 13 % (10.5-15); White Blood Count 7.3 10^3/ul (3.5-10.8)
[2017-12-04 17:24] LABS: Urine Appearance Turbid; Urine Blood Negative (Negative); Urine Color Yellow; Urine Ketones Trace (Negative); Urine Protein Negative (Negative); Urine Specific Gravity 1.027 (1.010-1.030); Urine Urobilinogen Negative (Negative)
[2017-12-04 17:40] LABS: EGFR Non-African American 85.6 (>60)
--- NOTE | 2017-12-04 18:33 | RAD ---
INDICATION: RIGHT lower quadrant pain. Question appendicitis and ovarian cyst. COMPARISON: November 27, 2017 CT TECHNIQUE: Ultrasound of the right lower quadrant. REPORT AND IMPRESSION: Nondiagnostic exam due to nonvisualization of the appendix. No RIGHT lower quadrant free fluid or lymphadenopathy evident. Correlate with clinical assessment.
--- NOTE | 2017-12-04 18:35 | RAD ---
Indication: RIGHT lower quadrant pain. Clinical differential includes appendicitis and ovarian cyst. Comparison: RIGHT lower quadrant ultrasound of the same date and November 27, 2017 CT. November 27, 2017 pelvic ultrasound. Technique: Transvaginal pelvic ultrasound. Report: Unremarkable 6.4 x 2.5 x 3.8 cm anteverted uterus with 3.5 mm endometrium. Negative for free pelvic fluid. Unremarkable 3.3 x 2.0 x 2.5 cm RIGHT ovary with documented vascular flow and 2.9 x 2.1 x 3.0 cm LEFT ovary with documented vascular flow. Small follicles present in both ovaries. No visualized extra ovarian adnexal region lesions evident. IMPRESSION: Negative pelvic ultrasound.
[2017-12-04] MEDS ORDERED: Ketorolac INJ* 30 MG/ML 1 ML VIAL IV PUSH ONE (19:24)
[2017-12-04] MEDS ORDERED: Iohexol 300* (CONTRAST) 10 ML SDV IV ONE (20:26)
--- NOTE | 2017-12-04 21:28 | ED ---
Miguelina Pruett Edward, scribed for Joe Brady on 12/04/17 at 1639 . Abdominal Pain/Female - HPI Summary HPI Summary: 22 y/o female presents to the ED c/o R sided ABD pain starting around 1 week ago ; becoming worse today. Pt had been pain-free for a couple of days before today. Pain rated 6-7 currentlyPt also believed she had bloody stool today; dark black colored - 1x around 1 hr [employer]. Associated sx: nausea this week. Pt was seen in the ED 3 times this week for the same sx. LNMP started four days ago. - History of Current Complaint Chief Complaint: EDAbdPain Stated Complaint: RT ABD PAIN/BLOODY STOOL Time Seen by Provider: 12/04/17 16:37 Hx Obtained From: Patient Hx Last Menstrual Period: "a little over 1 mth" Onset/Duration: Lasting Days, Still Present Timing: Days Pain Intensity: 6 Pain Scale Used: 0-10 Numeric Location: Other - R side Aggravating Factor(s): Nothing Alleviating Factor(s): Nothing Associated Signs and Symptoms: Positive: Blood in Stool Allergies/Adverse Reactions: Allergies Allergy/AdvReac Type Severity Reaction Status Date / Time Sulfa (Sulfonamide Allergy Rash Verified 12/04/17 16:54 Antibiotics) PMH/Surg Hx/FS Hx/Imm Hx Previously Healthy: No Endocrine/Hematology History: Denies: Hx Diabetes Cardiovascular History: Denies: Hx Hypertension, Hx Pacemaker/ICD History: Denies: Hx Renal Disease Sensory History: Denies: Hx Legally Blind, Hx Deafness, Hx Hearing Aid Opthamlomology History: Denies: Hx Legally Blind Psychiatric History: Denies: Hx Panic Disorder - Surgical History Surgery Procedure, Year, and Place: TUBES CHILD. wisdom teeth Infectious Disease History: No Infectious Disease History: Denies: Traveled Outside the [place] in Last 30 Days - Family History Known Family History: Positive: Unknown - Reviewed and non-contributory - Social History Alcohol Use: Occasionally Hx Substance Use: No Substance Use Type: Reports: None Hx Tobacco Use: No Smoking Status (MU): Never Smoked Tobacco Review of Systems Constitutional: Negative Eyes: Negative ENT: Negative Cardiovascular: Negative Respiratory: Negative Positive: Abdominal Pain, Other - Bloody BM today Genitourinary: Negative Musculoskeletal: Negative Skin: Negative Neurological: Negative Psychological: Normal All Other Systems Reviewed And Are Negative: Yes Physical Exam - Summary Physical Exam Summary: Appearance: Well appearing, no pain distress Skin: warm, dry, reflects adequate perfusion Head/face: normal Eyes: EOMI, DAISY ENT: normal Neck: supple, non-tender Respiratory: CTA, breath sounds present Cardiovascular: RRR, pulses symmetrical Abdomen: Tenderness in the RLQ, soft Bowel: present Musculoskeletal: normal, strength/ROM intact Neuro: normal, sensory motor intact, A&Ox3 Triage Information Reviewed: Yes Vital Signs On Initial Exam: Initial Vitals Temp Pulse Resp BP Pulse Ox 97.9 F 109 22 167/96 100 12/04/17 16:33 12/04/17 16:33 12/04/17 16:33 12/04/17 16:33 12/04/17 16:33 Vital Signs Reviewed: Yes Diagnostics - Vital Signs Vital Signs Temp Pulse Resp BP Pulse Ox 12/04/17 16:33 97.9 F 109 22 167/96 100 - Laboratory Lab Results: Lab Results 12/04/17 12/04/17 12/04/17 Range/Units 16:47 17:15 17:15 WBC 7.3 (3.5-10.8) 10^3/ul RBC 5.19 (4.0-5.4) 10^6/ul Hgb 14.8 (12.0-16.0) g/dl Hct 44 (35-47) % MCV 85 (80-97) fL MCH 29 (27-31) pg MCHC 34 (31-36) g/dl RDW 13 (10.5-15) % Plt Count 210 (150-450) 10^3/ul MPV 8.0 (7.4-10.4) um3 Neut % (Auto) 62.2 (38-83) % Lymph % (Auto) 29.5 (25-47) % [place] % (Auto) 6.6 (0-7) % Eos % (Auto) 1.1 (0-6) % Baso % (Auto) 0.6 (0-2) % Absolute Neuts (auto) 4.5 (1.5-7.7) 10^3/ul Absolute Lymphs (auto) 2.2 (1.0-4.8) 10^3/ul Absolute Monos (auto) 0.5 (0-0.8) 10^3/ul Absolute Eos (auto) 0.1 (0-0.6) 10^3/ul Absolute Basos (auto) 0 (0-0.2) 10^3/ul Absolute Nucleated RBC 0 10^3/ul Nucleated RBC % 0 Sodium 138 (133-145) mmol/L Potassium 3.7 (3.5-5.0) mmol/L Chloride 104 (101-111) mmol/L Carbon Dioxide 25 (22-32) mmol/L Anion Gap 9 (2-11) mmol/L BUN 8 (6-24) mg/dL Creatinine 0.84 (0.51-0.95) mg/dL Est GFR ( Amer) 110.1 (>60) Est GFR (Non-Af Amer) 85.6 (>60) BUN/Creatinine Ratio 9.5 (8-20) Glucose 96 (70-100) mg/dL Lactic Acid (0.5-2.0) mmol/L Calcium 10.1 (8.6-10.3) mg/dL Total Bilirubin 0.60 (0.2-1.0) mg/dL AST 17 (13-39) U/L ALT 15 (7-52) U/L Alkaline Phosphatase 47 (34-104) U/L Total Protein 7.7 (6.4-8.9) g/dL Albumin 4.7 (3.2-5.2) g/dL Globulin 3.0 (2-4) g/dL Albumin/Globulin Ratio 1.6 (1-3) Lipase < 10 L (11.0-82.0) U/L Beta HCG, Quant < 0.60 mIU/mL Urine Color Yellow Urine Appearance Turbid Urine pH 5.0 (5-9) Ur Specific [place] 1.027 (1.010-1.030) Urine Protein Negative (Negative) Urine Ketones Trace A (Negative) Urine Blood Negative (Negative) Urine Nitrate Negative (Negative) Urine Bilirubin Negative (Negative) Urine Urobilinogen Negative (Negative) Ur Leukocyte Esterase Negative (Negative) Urine Glucose Negative (Negative) Urine Ascorbic Acid * A (Negative) 12/04/17 Range/Units 17:15 WBC (3.5-10.8) 10^3/ul RBC (4.0-5.4) 10^6/ul Hgb (12.0-16.0) g/dl Hct (35-47) % MCV (80-97) fL MCH (27-31) pg MCHC (31-36) g/dl RDW (10.5-15) % Plt Count (150-450) 10^3/ul MPV (7.4-10.4) um3 Neut % (Auto) (38-83) % Lymph % (Auto) (25-47) % [place] % (Auto) (0-7) % Eos % (Auto) (0-6) % Baso % (Auto) (0-2) % Absolute Neuts (auto) (1.5-7.7) 10^3/ul Absolute Lymphs (auto) (1.0-4.8) 10^3/ul Absolute Monos (auto) (0-0.8) 10^3/ul Absolute Eos (auto) (0-0.6) 10^3/ul Absolute Basos (auto) (0-0.2) 10^3/ul Absolute Nucleated RBC 10^3/ul Nucleated RBC % Sodium (133-145) mmol/L Potassium (3.5-5.0) mmol/L Chloride (101-111) mmol/L Carbon Dioxide (22-32) mmol/L Anion Gap (2-11) mmol/L BUN (6-24) mg/dL Creatinine (0.51-0.95) mg/dL Est GFR ( Amer) (>60) Est GFR (Non-Af Amer) (>60) BUN/Creatinine Ratio (8-20) Glucose (70-100) mg/dL Lactic Acid 1.2 (0.5-2.0) mmol/L Calcium (8.6-10.3) mg/dL Total Bilirubin (0.2-1.0) mg/dL AST (13-39) U/L ALT (7-52) U/L Alkaline Phosphatase (34-104) U/L Total Protein (6.4-8.9) g/dL Albumin (3.2-5.2) g/dL Globulin (2-4) g/dL Albumin/Globulin Ratio (1-3) Lipase (11.0-82.0) U/L Beta HCG, Quant mIU/mL Urine Color Urine Appearance Urine pH (5-9) Ur Specific [place] (1.010-1.030) Urine Protein (Negative) Urine Ketones (Negative) Urine Blood (Negative) Urine Nitrate (Negative) Urine Bilirubin (Negative) Urine Urobilinogen (Negative) Ur Leukocyte Esterase (Negative) Urine Glucose (Negative) Urine Ascorbic Acid (Negative) Result Diagrams: 12/04/17 17:15 12/04/17 17:15 Lab Statement: Any lab studies that have been ordered have been reviewed, and results considered in the medical decision making process. - Ultrasound No standard instances Ultrasound Interpretation: No Acute Changes - NEGATIVE PELVIC ULTRASOUND. Ultrasound Interpretation Completed By: Radiologist - Additional Comments Diagnostic Additional Comments: APPENDIX US - Nondiagnostic exam due to nonvisualization of the appendix. No RIGHT lower quadrant free fluid or lymphadenopathy evident. Correlate with clinical assessment. Re-Evaluation - Re-Evaluation 1 Re-Evaluation Time: 21:00 Comment: Pt requests a CT scan Abdominal Pain Fem Course/Dx - Course Course Of Treatment: 22 y/o female presents to the ED c/o R sided ABD pain starting around 1 week ago; becoming worse today. Pt had been pain-free for a couple of days before today. Pt also believed she had bloody stool today; dark black colored - 1x around 1 hr [employer]. Associated sx: nausea this week. Pt was seen in the ED 3 times this week for the same sx. LNMP started four days ago. NEGATIVE PELVIC ULTRASOUND. APPENDIX US - Nondiagnostic exam due to nonvisualization of the appendix. No. RIGHT lower quadrant free fluid or lymphadenopathy evident. Correlate with clinical assessment. Pt will be signed out to Kary Monsivais pending ABD/PEL CT. - Diagnoses Differential Diagnosis: Positive: Appendicitis, Diverticulitis, Renal Colic, Urinary Tract Infection Provider Diagnoses: Abdominal pain Discharge - Sign-Out/Discharge Documenting (check all that apply): Sign-Out Patient Signing out patient TO: Kary Monsivais Receiving patient FROM: Joe Brady - Discharge Plan Referrals: Yazan Martinez DO [Doctor of Osteopathy] - The documentation as recorded by the Miguelina rincon Edward accurately reflects the service I personally performed and the decisions made by , Joe Brady.
--- NOTE | 2017-12-04 22:27 | ED ---
Progress - Progress Note Progress Note: Patient signed out by Dr brady pending CT labs reviewed with patient. Discussed with patient and patient declined pelvic exam. Patient states has been having diarrhea. The patient states that has tried stopping gluten and it does not seem to be improving symptoms. Stated that should follow up with primary tested for celiac. CT normal. discussed that may have IBS. offered loperamide for diarrhea and patient declined. stated that can use OTC loperamide. - EKG/XRAY/CT CT: normal. Normal appendix Re-Evaluation - Re-Evaluation 1 Re-Evaluation Time: 21:00 Comment: Pt requests a CT scan Course/Dx - Course Course Of Treatment: 22 y/o female presents to the ED c/o R sided ABD pain starting around 1 week ago; becoming worse today. Pt had been pain-free for a couple of days before today. Pt also believed she had bloody stool today; dark black colored - 1x around 1 hr [employer]. Associated sx: nausea this week. Pt was seen in the ED 3 times this week for the same sx. LNMP started four days ago. NEGATIVE PELVIC ULTRASOUND. APPENDIX US - Nondiagnostic exam due to nonvisualization of the appendix. No. RIGHT lower quadrant free fluid or lymphadenopathy evident. Correlate with clinical assessment. Pt will be signed out to Kary Monsivais pending ABD/PEL CT. CT abd normal. will discharge to follow up with primary as can not find reason for pain in ED. may benefit from GI consult. patient understand and agrees with plan. - Diagnoses Provider Diagnoses: Abdominal pain, Diarrhea Discharge - Sign-Out/Discharge Documenting (check all that apply): Receiving Sign-Out Receiving patient FROM: Joe Brady - Discharge Plan Condition: Good Disposition: HOME Patient Education Materials: Abdominal Pain (ED) Referrals: Yazan Martinez DO [Doctor of Osteopathy] - Additional Instructions: Follow up with primary about abdominal pain, may need to follow up with GI Take tyenlol or ibuprofen for pain every 6 hours Can try Loperamide Initial: 4 mg (2 tablets), followed by 2 mg (1 tablet) after each loose stool (maximum: 16 mg/day) Return to ED if develop any new or worsening symptoms - Billing Disposition and Condition Condition: GOOD Disposition: HOME
[2017-12-04 23:37] VITALS: BP 116/67
--- NOTE | 2017-12-05 07:41 | RAD ---
CLINICAL HISTORY: Right lower quadrant pain COMPARISON: November 27, 2012 TECHNIQUE: Multiple contiguous axial CT scans were obtained of the abdomen and pelvis after the administration of intravenous contrast. Coronal and sagittal multiplanar reformations are submitted for review. Oral contrast was administered. Delayed images were obtained through the abdomen and pelvis. FINDINGS: LUNG BASES: The lung bases are clear. LIVER: Again noted is a small low-attenuation lesion of the right lobe of liver. This is too small to definitively characterize. This is stable from the previous examination. The liver measures 16.3 cm in long axis. BILE DUCTS: There is no intrahepatic or extrahepatic biliary dilatation. GALLBLADDER: The gallbladder is normal, without pericholecystic inflammatory change. PANCREAS: The pancreas is normal, without mass or ductal dilatation. SPLEEN: Normal in size and appearance. The spleen measures 12.4 cm in long axis. UPPER GI TRACT: Evaluation of the gastrointestinal tract is limited by incomplete gastric distention. The upper GI tract is unremarkable. SMALL BOWEL AND MESENTERY: The small bowel is normal in contour, course, and caliber. There is no obstruction or dilatation. COLON: There is a tubular, vermiform, hollow viscus that is blind ending, and originates from the cecum, consistent with a normal appendix. There is no periappendiceal inflammatory change. This is best seen on coronal images 37 through 44. ADRENALS: Normal bilaterally. KIDNEYS: The kidneys are normal in shape, size, contour, and axis. There is no hydronephrosis or nephrolithiasis. BLADDER: The bladder is collapsed and is not well evaluated. PELVIC ORGANS: The uterus and adnexa are grossly normal for technique. AORTA: The aorta is normal. IVC: Unremarkable LYMPH NODES: There is no lymphadenopathy by size criteria. ABDOMINAL WALL: There is no evidence for abdominal wall hernia. BONES AND SOFT TISSUES: Unremarkable OTHER: None IMPRESSION: 1. NORMAL APPENDIX. 2. AGAIN NOTED IS A LOW-ATTENUATION LESION OF THE RIGHT LOBE OF LIVER THAT IS TOO SMALL TO DEFINITIVELY CHARACTERIZE, BUT STATISTICALLY MOST LIKELY REPRESENTS SMALL CYST OR HEMANGIOMA IN THE ABSENCE OF A HISTORY OF MALIGNANCY. 3. NO ACUTE CT PATHOLOGY OF THE VISUALIZED ABDOMEN OR PELVIS.
== END 2017-12-04 23:36 | disposition home or self-care (01) ==
LOC: ED 16:27
DX: R10.31 Right lower quadrant pain (principal); R11.0 Nausea; K92.1 Melena; Z88.2 Allergy status to sulfonamides; Z32.02 Encounter for pregnancy test, result negative
CPT/HCPCS: 36415; 74177; 76705; 76830; 80053; 81003; 83605; 83690; 84702; 85025; 86140; 96361; 96374; 99283; J1885; Q9967

== ENCOUNTER 2017-12-30 19:05 | Emergency (ER) | payer OTHER ==
[2017-12-30 20:48] LABS: ABS Basophils 0.1 10^3/ul (0-0.2); ABS Eosinophils 0.1 10^3/ul (0-0.6); ABS Lymphocytes 2.6 10^3/ul (1.0-4.8); ABS Monocytes 0.7 10^3/ul (0-0.8); ABS Neutrophils 5.3 10^3/ul (1.5-7.7); ABS Nucleated RBC 0 10^3/ul; Eosinophil % 1.3 % (0-6); Hematocrit 42 % (35-47); Hemoglobin 14.4 g/dl (12.0-16.0); Lymphocyte % 30.2 % (25-47); Mean Corpuscular HGB Conc 34 g/dl (31-36); Mean Corpuscular Hemoglobin 29 pg (27-31); Mean Corpuscular Volume 85 fL (80-97); Nucleated Red Blood Cells % 0.1; Platelet Count 192 10^3/ul (150-450); Red Blood Count 4.97 10^6/ul (4.0-5.4); Red Cell Distribution Width 13 % (10.5-15); White Blood Count 8.7 10^3/ul (3.5-10.8)
[2017-12-30 21:04] LABS: EGFR Non-African American 109.2 (>60)
[2017-12-30 22:45] LABS: Urine Appearance Clear; Urine Blood 1+ (Negative); Urine Color Straw; Urine Ketones 1+ (Negative); Urine Protein Negative (Negative); Urine Specific Gravity 1.008 (1.010-1.030); Urine Urobilinogen Negative (Negative)
--- NOTE | 2017-12-31 00:02 | ED ---
Abdominal Pain/Female - HPI Summary HPI Summary: C/O RLQ PAIN, BLEEDING FROM RECTUM WITH BM TODAY. HX OF SAME X 1 MONTH, SEEN HERE FOR SAME MULTIPLE TIMES WITH EXTENSIVE IMAGING ON 11/27 AND 12/04, INCLUDING AB/PEL CT X2, TV US X 1, US GB X1, RENAL US X1, ALL NEG FOR ACUTE PROCESS. PT HAS BEEN REFERRED TO GI FOR COLONOSCOPY BUT IS WAITING UNTIL EXAMS ARE OVER. STATES RLQ PAIN HAS BEEN IMPROVING WITH SOME DIET CHNAGES, BUT EPISODE OF RECTAL BLEED TODAY WAS WORSE. PRIOR EPISODES INVOLVED BLOOD ON PAPER, TODAY BLOOD IN TOILET BOWL. DENIES FEVER, INC IN ABDO PAIN, N/V/D, VAGINAL SX, URINARY SX. MED HX = NONE. SURG HX = NONE. PT HAS BEEN MANAGING SX WITH TYLENOL AND IBUPROFEN. PT HAS PHONE PHOTO OF BLOOD IN BOWL. - History of Current Complaint Chief Complaint: EDAbdPain Stated Complaint: ABD PAIN/RECTAL BLEEDING Time Seen by Provider: 12/30/17 22:57 Hx Obtained From: Patient Hx Last Menstrual Period: "a little over 1 mth" Onset/Duration: Gradual Onset Timing: Intermittent Episode Lasting Severity Initially: Moderate Severity Currently: Mild Pain Intensity: 7 Pain Scale Used: 0-10 Numeric Location: Discrete At: RLQ Radiates: No Character: Sharp Aggravating Factor(s): Movement Alleviating Factor(s): OTC Analgesics Associated Signs and Symptoms: Positive: Blood in Stool Allergies/Adverse Reactions: Allergies Allergy/AdvReac Type Severity Reaction Status Date / Time Sulfa (Sulfonamide Allergy Rash Verified 12/30/17 19:10 Antibiotics) PMH/Surg Hx/FS Hx/Imm Hx Endocrine/Hematology History: Denies: Hx Diabetes Cardiovascular History: Denies: Hx Hypertension, Hx Pacemaker/ICD History: Denies: Hx Renal Disease Sensory History: Denies: Hx Legally Blind, Hx Deafness, Hx Hearing Aid Opthamlomology History: Denies: Hx Legally Blind Psychiatric History: Denies: Hx Panic Disorder - Surgical History Surgery Procedure, Year, and Place: TUBES CHILD. wisdom teeth - Immunization History Immunizations Up to Date: Yes Infectious Disease History: No Infectious Disease History: Denies: Traveled Outside the [place] in Last 30 Days - Family History Known Family History: Positive: Unknown - Reviewed and non-contributory - Social History Alcohol Use: Occasionally Hx Substance Use: No Substance Use Type: Reports: None Hx Tobacco Use: No Smoking Status (MU): Never Smoked Tobacco Review of Systems Constitutional: Negative Eyes: Negative Cardiovascular: Negative Respiratory: Negative Positive: Abdominal Pain Genitourinary: Negative Musculoskeletal: Negative Skin: Negative Neurological: Negative Psychological: Normal All Other Systems Reviewed And Are Negative: Yes Physical Exam Triage Information Reviewed: Yes Vital Signs On Initial Exam: Initial Vitals Temp Pulse Resp BP Pulse Ox 97.7 F 83 16 160/99 100 12/30/17 19:07 12/30/17 19:07 12/30/17 19:07 12/30/17 19:07 12/30/17 19:07 Vital Signs Reviewed: Yes Appearance: Positive: Well-Appearing Skin: Positive: Warm Head/Face: Positive: Normal Head/Face Inspection Eyes: Positive: Normal Neck: Positive: Supple Respiratory/Lung Sounds: Positive: Clear to Auscultation Cardiovascular: Positive: Normal Abdomen Description: Positive: Nontender Musculoskeletal: Positive: Normal Psychiatric: Positive: Normal AVPU Assessment: Alert - Sadia Coma Scale Best Eye Response: 4 - Spontaneous Best Motor Response: 6 - Obeys Commands Best Verbal Response: 5 - Oriented Coma Scale Total: 15 Diagnostics - Vital Signs Vital Signs Temp Pulse Resp BP Pulse Ox 12/30/17 23:46 83 138/85 100 12/30/17 23:16 93 115/74 100 12/30/17 23:00 77 100 12/30/17 22:46 91 119/68 100 12/30/17 22:18 82 99 12/30/17 22:16 81 133/82 99 12/30/17 21:10 98.0 F 87 143/77 100 12/30/17 19:07 97.7 F 83 16 160/99 100 - Laboratory Lab Results: Lab Results 12/30/17 12/30/17 12/30/17 Range/Units 20:38 20:38 22:10 WBC 8.7 (3.5-10.8) 10^3/ul RBC 4.97 (4.0-5.4) 10^6/ul Hgb 14.4 (12.0-16.0) g/dl Hct 42 (35-47) % MCV 85 (80-97) fL MCH 29 (27-31) pg MCHC 34 (31-36) g/dl RDW 13 (10.5-15) % Plt Count 192 (150-450) 10^3/ul MPV 8.0 (7.4-10.4) um3 Neut % (Auto) 60.2 (38-83) % Lymph % (Auto) 30.2 (25-47) % [place] % (Auto) 7.7 H (0-7) % Eos % (Auto) 1.3 (0-6) % Baso % (Auto) 0.6 (0-2) % Absolute Neuts (auto) 5.3 (1.5-7.7) 10^3/ul Absolute Lymphs (auto) 2.6 (1.0-4.8) 10^3/ul Absolute Monos (auto) 0.7 (0-0.8) 10^3/ul Absolute Eos (auto) 0.1 (0-0.6) 10^3/ul Absolute Basos (auto) 0.1 (0-0.2) 10^3/ul Absolute Nucleated RBC 0 10^3/ul Nucleated RBC % 0.1 Sodium 137 L (139-145) mmol/L Potassium 4.0 (3.5-5.0) mmol/L Chloride 103 (101-111) mmol/L Carbon Dioxide 26 (22-32) mmol/L Anion Gap 8 (2-11) mmol/L BUN 8 (6-24) mg/dL Creatinine 0.68 (0.51-0.95) mg/dL Est GFR ( Amer) 140.5 (>60) Est GFR (Non-Af Amer) 109.2 (>60) BUN/Creatinine Ratio 11.8 (8-20) Glucose 93 (70-100) mg/dL Calcium 10.3 (8.6-10.3) mg/dL Total Bilirubin 0.70 (0.2-1.0) mg/dL AST 15 (13-39) U/L ALT 13 (7-52) U/L Alkaline Phosphatase 46 (34-104) U/L C-Reactive Protein 1.34 (< 5.00) mg/L Total Protein 7.5 (6.4-8.9) g/dL Albumin 4.7 (3.2-5.2) g/dL Globulin 2.8 (2-4) g/dL Albumin/Globulin Ratio 1.7 (1-3) Lipase 12 (11.0-82.0) U/L Urine Color Straw Urine Appearance Clear Urine pH 5.0 (5-9) Ur Specific [place] 1.008 L (1.010-1.030) Urine Protein Negative (Negative) Urine Ketones 1+ A (Negative) Urine Blood 1+ A (Negative) Urine Nitrate Negative (Negative) Urine Bilirubin Negative (Negative) Urine Urobilinogen Negative (Negative) Ur Leukocyte Esterase Negative (Negative) Urine WBC (Auto) Trace(0-5/hpf) (Absent) Urine RBC (Auto) Trace(0-2/hpf) (Absent) Urine Bacteria Absent (Absent) Urine Glucose Negative (Negative) Result Diagrams: 12/30/17 20:38 12/30/17 20:38 Lab Statement: Any lab studies that have been ordered have been reviewed, and results considered in the medical decision making process. Abdominal Pain Fem Course/Dx - Diagnoses Provider Diagnoses: Rectal bleed Discharge - Sign-Out/Discharge Documenting (check all that apply): Discharge - Discharge Plan Condition: Stable Disposition: HOME Prescriptions: Dicyclomine CAP* [Bentyl CAP*] 20 mg PO TID PRN 10 Days #60 cap PRN Reason: Pain Referrals: [facility] - Cresencio FIGUEROA [Primary Care Provider] - Mal Diggs MD [Medical Doctor] - Additional Instructions: FOLLOW UP WITH PRIMARY CARE AND GI. RETURN TO ED FOR ANY NEW OR WORSENING SYMPTOMS. - Billing Disposition and Condition Condition: STABLE Disposition: HOME
[2017-12-31] MEDS ORDERED: Dicyclomine CAP* 10 MG PO ONE (00:07)
[2017-12-31 00:31] VITALS: BP 134/74
== END 2017-12-31 00:30 | disposition home or self-care (01) ==
LOC: ED 19:05
DX: K62.5 Hemorrhage of anus and rectum (principal); R10.31 Right lower quadrant pain; Z88.2 Allergy status to sulfonamides
CPT/HCPCS: 36415; 80053; 81003; 81015; 83690; 85025; 86140; 87086; 99283; A9270-GY